=== PATIENT | male | born 1950 | race Caucasian/White ===

== ENCOUNTER 2025-01-18 14:54 | Emergency (ER) | payer OTHER, MEDICARE ==
[~2025-01-18] VITALS: Ht 180.3 cm; Wt 87.1 kg
[~2025-01-18 14:54] MED LIST: ATORVASTATIN CA20 MG PO; BETAHISTINE 16 MG PO; BETAHISTINE5 GM MISC; FLOMAX0.4 MG PO; GINKGO BILOBA1 EACH PO; L-LYSINE500 M1 PO; L-LYSINE500 M2 PO; LEVOFLOXACIN500 MG PO; LISINOPRIL2.5 MG PO; METFORMIN HCL1000 MG PO; MSM1000 M1 PO; ONDANSETRON HCL4 MG PO; ONDANSETRON ODT4 MG PO; OXYCODONE HCL5 MG PO; SAW PALMETTO160 MG PO; VITAMIN C500 M1 PO; VITAMIN E100 UNI2 PO
[2025-01-18] MEDS ORDERED: CEPHALEXIN MONOHYDRATE 500 MG CAP PO ONE (15:15)
[2025-01-18] MEDS ORDERED: DIPHTH,PERTUSS(ACELL),TET VAC 0.5 ML SYRINGE IM ONE (15:15)
[2025-01-18] MEDS ORDERED: NAPROSYN500 MG PO (15:25)
[2025-01-18] MEDS ORDERED: CEPHALEXIN500 M1 PO (15:25)
[2025-01-18] MEDS ORDERED: ACETAMINOPHEN 500 MG TAB PO ONE (15:30)
[2025-01-18 17:10] VITALS: BP 116/76
== END 2025-01-18 17:10 | disposition home or self-care (01) ==
LOC: ED 14:54
DX: S62.615A Displaced fracture of proximal phalanx of left ring finger, initial encounter for closed fracture (principal); W34.09XA Accidental discharge from other specified firearms, initial encounter; Z79.84 Long term (current) use of oral hypoglycemic drugs; Z79.899 Other long term (current) drug therapy
CPT/HCPCS: 29125; 73130; 90471; 99284-25; A9270